=== PATIENT | male | born 1940 | race Caucasian/White ===

== ENCOUNTER → 2018-12-24 17:41 | Emergency (ER) | payer BC ==
[~2018-12-24 17:41] MED LIST: cloNIDine TAB* 0.1 MG PO ONE
--- NOTE | 2018-12-24 19:30 | ED ---
Headache - HPI Summary HPI Summary: The patient is a 78 y/o M presenting to [facility] accompanied by with a chief complaint of sudden onset left posterior headache starting last night. He reports that the COOK started last night, but he mostly resolved it with Ibuprofen. The COOK returned and worsened at 1600 tonight, and he was unable to alleviated the pain using Ibuprofen, ASA, or Tylenol. He denies any other neurological deficits at this time including weakness, dizziness, or slurred speech, and he also denies fevers and chills. Hx of CVA in 2017, kidney changes , and HTN. He takes Lisinopril and Clonidine for HTN, but he has not taken the medications today because he forgot due to the COOK. His states he has had similar episodes of COOK before that last up to 2-3 weeks at a time. Former smoker , daily EtOH, no substance use. - History Of Current Complaint Chief Complaint: EDHeadache Stated Complaint: HEAD ACHE PER PT Time Seen by Provider: 12/24/18 19:05 Hx Obtained From: Patient Onset/Duration: Sudden Onset, Started hours ago - last night, Still Present Initially Headache Was: Moderate Currently Pain Is: Current Pain Scale(0-10)= - 5 Timing: Hours Character: Typical Headache Location of Headache: Other: - left posterior Radiates to: none Aggravating Factor: Nothing Allevating Factors: Nothing - Ibuprofen, Tylenol, and ASA to some relief Associated Signs And Symptoms: Other (Noted In Comments) - NEGATIVE: fever, chills, dizziness, weakness, slurred speech - Allergies/Home Medications Allergies/Adverse Reactions: Allergies Allergy/AdvReac Type Severity Reaction Status Date / Time No Known Allergies Allergy Verified 12/24/18 17:49 PMH/Surg Hx/FS Hx/Imm Hx Endocrine/Hematology History: Denies: Hx Diabetes Cardiovascular History: Reports: Hx Hypertension History: Reports: Hx Renal Disease Neurological History: Reports: Hx CVA Infectious Disease History: No Infectious Disease History: Denies: Traveled Outside the [place] in Last 30 Days - Social History Alcohol Use: Daily Hx Substance Use: No Substance Use Type: Reports: None Hx Tobacco Use: Yes Smoking Status (MU): Former Smoker Review of Systems Negative: Fever, Chills Neurological: Other - NEGATIVE: dizziness Positive: Headache - left posterior head. Negative: Weakness, Slurred Speech All Other Systems Reviewed And Are Negative: Yes Physical Exam - Summary Physical Exam Summary: Constitutional: Well-developed, Well-nourished, Alert. (-) Distressed Skin: Warm, Dry HENT: Tenderness to palpation of the left superior parietal scalp; Normocephalic ; Atraumatic Eyes: Conjunctiva normal Neck: Musculoskeletal ROM normal neck. (-) JVD, (-) Stridor, (-) Tracheal deviation Cardio: Rhythm regular, rate normal, Heart sounds normal; Intact distal pulses; The pedal pulses are 2+ and symmetric. Radial pulses are 2+ and symmetric. (-) Murmur Pulmonary/Chest wall: Effort normal. (-) Respiratory distress, (-) Wheezes, (-) Rales Abd: Soft, (-) tenderness, (-) Distension, (-) Guarding, (-) Rebound Musculoskeletal: (-) Edema Lymph: (-) Cervical adenopathy Neuro: Alert, Oriented x3 Psych: Mood and affect Normal GCS: 15. Triage Information Reviewed: Yes Vital Signs On Initial Exam: Initial Vitals Temp Pulse Resp BP Pulse Ox 98.3 F 54 16 198/95 99 12/24/18 17:42 12/24/18 17:42 12/24/18 17:42 12/24/18 17:42 12/24/18 17:42 Vital Signs Reviewed: Yes - [place] Coma Scale Best Eye Response: 4 - Spontaneous Best Motor Response: 6 - Obeys Commands Best Verbal Response: 5 - Oriented Coma Scale Total: 15 Diagnostics - Vital Signs Vital Signs Temp Pulse Resp BP Pulse Ox 12/24/18 17:42 98.3 F 54 16 198/95 99 - Laboratory Result Diagrams: 12/24/18 19:36 12/24/18 19:36 Lab Statement: Any lab studies that have been ordered have been reviewed, and results considered in the medical decision making process. - CT Brain CT CT Interpretation Completed By: Radiologist Summary of CT Findings: 1. No acute intracranial findings. 2. 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 ED physician has reviewed this imaging report. - EKG 2014 Cardiac Rate: Bradycardia - 54 BPM EKG Rhythm: Sinus Bradycardia Summary of EKG Findings: Left axis deviation. Prolonged GA. First degree AV block. Nml QRS. Nml QTc. Nml ST. Nml T waves. Overall sinus bradycardic nonspecific EKG. Re-Evaluation - Re-Evaluation First Eval Re-Evaluation Time: 20:30 Change: Improved Comment: Patient's COOK has improved. We discussed results and discharge home. Headache Course/Dx - Course Course Of Treatment: The patient is a 78 y/o M presenting to [facility] accompanied by with a chief complaint of sudden onset left posterior headache starting last night that was resolved with Ibuprofen but returned at 1600 today with persistence despite medication use. Hx of CVA but denies other neurological deficits at this time including weakness, dizziness, and slurred speech. Upon physical exam, the patient exhibits tenderness to palpation of the left superior parietal scalp. Blood work reveals RBCs of 4.01. Hgb of 12.4, Hct of 37 , BUN of 27, BUN/Creatinine ratio of 23.3, and total protein of 6.2. EKG reveals overall sinus bradycardia at 54 bpm, nonspecific, with left axis deviation, prolonged GA, first degree AV block, and normal QRS, QTc, ST, and T waves. Brain CT Impression: 1. No acute intracranial findings. 2. 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 In the ED course, patient was administered Clonidine to improve HTN. Since patients symptoms have improved, he will be discharged home. He is diagnosed with a COOK and essential HTN. He agrees with plan for follow up with PCP. - Diagnoses Provider Diagnoses: Headache, Essential hypertension Discharge - Sign-Out/Discharge Documenting (check all that apply): Patient Departure - Patient will be discharged home. Patient Received Moderate/Deep Sedation with Procedure: No - Discharge Plan Condition: Stable Disposition: HOME Patient Education Materials: Acute Headache (ED) Print Language: [place] Referrals: Rickie MEJIA,Henrry Swenson [Primary Care Provider] - 3 Days Additional Instructions: Return to the emergency department for any new or worsening symptoms. - Billing Disposition and Condition Condition: STABLE Disposition: Home - Attestation Statements Document Initiated by Scribe: Yes Documenting Scribe: Myra Donahue Provider For Whom Richard is Documenting (Include Credential): Dr. Peri Elder MD Scribe Attestation: Myra Jim scribed for Dr. Peri Elder MD on 12/25/18 at 0833. Scribe Documentation Reviewed: Yes Provider Attestation: The documentation as recorded by the Myra tang accurately reflects the service I personally performed and the decisions made by me, Dr. Peri Elder MD Status of Scribe Document: Viewed
[2018-12-24 19:43] LABS: ABS Eosinophils 0.2 10^3/ul (0-0.6); ABS Lymphocytes 1.6 10^3/ul (1.0-4.8); ABS Monocytes 0.5 10^3/ul (0-0.8); Eosinophil % 4.1 %; Hematocrit 37 % (42-52); Hemoglobin 12.4 g/dL (14.0-18.0); Lymphocyte % 36.7 %; Mean Corpuscular HGB Conc 33 g/dL (31-36); Mean Corpuscular Hemoglobin 31 pg (27-31); Mean Corpuscular Volume 93 fL (80-94); Mean Platelet Volume 8.1 fL (7.4-10.4); Nucleated Red Blood Cells % 0.1; Platelet Count 171 10^3/uL (150-450); Red Blood Count 4.01 10^6 /uL (4.18-5.48); Red Cell Distribution Width 13 % (10-15); White Blood Count 4.3 10^3/uL (3.5-10.8)
[2018-12-24 19:48] LABS: INR 1.03 (0.82-1.09)
[2018-12-24 20:00] LABS: Albumin 3.7 g/dL (3.2-5.2); Albumin/Globulin Ratio 1.5 (1-3); BUN/Creatinine Ratio 23.3 (8-20); Calcium 8.8 mg/dL (8.6-10.3); EGFR African American 73.9 (>60); EGFR Non-African American 61.1 (>60); Globulin 2.5 g/dL (2-4); Potassium 4.5 mmol/L (3.5-5.0); Total Bilirubin 0.3 mg/dL (0.2-1.0); Total Protein 6.2 g/dL (6.4-8.9)
[2018-12-24 21:08] VITALS: BP 173/77
== END | disposition home or self-care (01) ==
LOC: ED 17:41
DX: R51 Headache (principal); I10 Essential (primary) hypertension; Z87.891 Personal history of nicotine dependence; Z79.899 Other long term (current) drug therapy
CPT/HCPCS: 36415; 70450; 80053; 83605; 84484; 85025; 85610; 93005; 99283; A9270-GY